=== PATIENT | female | born 1975 | race African-American/Black ===

== ENCOUNTER 2023-10-16 14:28 | Observation (INO) ==
[2023-10-16 14:55] LABS: Basophils # (auto) 0.04 K/uL (0.00-0.20); Basophils % (auto) 0.8 %; Eosinophils # (auto) 0.06 K/uL (0.00-0.50); Eosinophils % (auto) 1.2 %; Hematocrit (blood only) 36.8 % (37.0-47.0); Hemoglobin 11.9 g/dl (12.0-16.0); Immature Granulocytes # (auto) 0.01 K/uL (0.01-0.20); Immature Granulocytes % (auto) 0.2 %; Lymphocytes # (auto) 2.17 K/uL (1.20-3.40); Lymphocytes % (auto) 44.9 %; Mean Corpuscular Hemoglobin 24.8 pg (25.0-34.0); Mean Corpuscular Hgb Conc 32.3 g/dL (32.0-36.0); Mean Corpuscular Volume 76.7 fL (80.0-100.0); Mean Platelet Volume 8.7 fL (9.4-12.4); Monocytes # (auto) 0.38 K/uL (0.11-0.59); Monocytes % (auto) 7.9 %; Neutrophils # (auto) 2.17 K/uL (1.40-6.50); Platelet Count 302 K/uL (130-400); RDW Coefficient of Variation 14.6 % (11.5-14.5); RDW Standard Deviation 40.4 fL (36.4-46.3); White Blood Count 4.83 K/ul (4.8-10.8)
[2023-10-16 15:11] LABS: Alanine Aminotransferase 7 U/L (7-52); Albumin Globulin Ratio 0.9 (0.9-2); Albumin Level 3.9 gm/dl (3.4-5.0); Alkaline Phosphatase 66 U/L (34-104); Anion Gap 6 (3-11); Aspartate Aminotransferase 12 U/L (13-39); BUN Creatinine Ratio 15.5 (10-20); Bilirubin,Total 0.5 mg/dl (0.2-1.0); Blood Urea Nitrogen 13 mg/dl (6-23); Calcium 8.9 mg/dl (8.6-10.3); Carbon Dioxide 25 mmol/L (21-32); Chloride 107 mmol/L (98-107); Est GFR (African American) 95.9 ml/min; Est GFR (Non-African American) 82.8 ml/min; Globulin 4.4 gm/dl (2.5-4.0); Glucose 85 mg/dl (70-99(Fasting)); Lipase 6 U/L (11-82); Potassium 3.8 mmol/L (3.5-5.1); Sodium 138 mmol/L (136-145); Total Protein 8.3 gm/dl (6.0-8.3)
[2023-10-16 15:18] LABS: Pregnancy Test, Serum Negative (Negative)
[2023-10-16] MEDS: OPTIRAY 320 100ml IV ONE (15:43)
--- NOTE | 2023-10-16 16:20 | CT Scan Report ---
CT abd pelvis IV con only CLINICAL HISTORY: LLQ pain, kidney stone vs diverticultis TECHNIQUE: Helical axial images of the abdomen and pelvis were obtained and displayed. Automated dose lowering techniques and/or adjustment according to patient size were utilized for this exam. This e xam was performed with intravenous contrast. CT DOSE: 1338.53 mGy.cm COMPARISON: None available at the time of this dictation. FINDINGS: Lower chest: No acute abnormality. Liver: Unremarkable. No focal lesions are seen. Gallbladder and biliary tree: Patient is status post cholecystectomy. No intra- or extrahepatic bilia ry ductal dilation. Pancreas: Unremarkable, no focal lesions. Spleen: Unremarkable. Adrenals: Unremarkable. Kidneys and ureters: Unremarkable. Bladder: Unremarkable. Reproductive organs: 31 mm intramural fibroid is seen. Nabothian cysts are noted. Bowel: Diverticulosis is seen without diverticulitis. The appendix is normal. Lymph nodes Retroperitoneal: Unremarkable. Pelvic: Unremarkable. Mesenteric: Unremarkable. Peritoneum: Normal. Vessels: Unremarkable. Abdominal wall: Unremarkable. Bones: Unremarkable. IMPRESSION: No acute abnormality and in particular no evidence of diverticulitis or obstructive stone. Diverticul osis is seen. Additional findings as above. ACT 112: Negative or not required by law. Electronically signed by: Nura Young M.D. 10/16/2023 4:17 PM
--- NOTE | 2023-10-16 17:47 | Emergency Department Note ---
Impression & Plan Intractable abdominal pain ED Provider Note NAME: HERMAN DAVIS AGE: 47 SEX: F : 1975 ARRIVES VIA: Ambulance INFORMANT: Patient, ED PROVIDER(S): Opal Mccann MD CHIEF COMPLAINT: Left flank/abdominal pain HPI: This is a 47-year-old female sent for left abdominal/flank pain. Patient states he went to her PCP with his left lower abdominal/flank pain. They called 9 1 right away to bring your for evaluation. She notes that her pain started last night has associated nausea without vomiting. Reports no history of kidney stones in the past. Reports history of Crohn's, IBS and diverticulosis. Otherwise no urinary symptoms. Currently on her menstrual period. Otherwise her pain is stable if not worsening moving from flank to anterior abdomen. ROS: See above HPI for pertinent positives & negatives. A total of 10 systems reviewed and were otherwise negative. PHYSICAL EXAMINATION: General: resting comfortably in no acute distress Head: Normocephalic and atraumatic Eyes: Normal inspection, extraocular muscles intact Ear, nose, throat: Normal external exam Neck: Normal range of motion Respiratory: lungs clear to auscultation bilaterally Cardiovascular: Regular rate/rhythm, no murmur GI: Left CVA tenderness, left lower abdominal tenderness Extremities: nontender, moves all extremities Neuro: The patient awake and alert, appropriately conversive, no focal deficits, symmetric faces Skin: Warm, dry, and intact MEDICAL DECISION MAKING: This is a 47-year-old female presenting for left lower abdominal/flank pain. Patient was sent in for appears to be kidney stone rule out. Patient had triage workup that included blood work. CT scan of the abdomen/pelvis ordered with contrast help with today for other etiology additionally kidney stone including diverticulitis, SBO, gastroenteritis, volvulus. -Blood was reviewed without leukocytosis, anemia to 11.9. Otherwise electrolytes within normal limits. LFTs normal. No lipase elevation. Not currently . -CT Abdo/pelvis reveals no acute kidney stone or diverticulitis. With patient's lower abdominal pain, will do ultrasound of the pelvis to rule out ovarian torsion. -Ultrasound reveals no left ovary but otherwise notes of abnormalities have fibroid uterus. Discussed care with CARTOGRAPHY PROFESSOR. Low concern for ovarian torsion as there is no visualized ovary on ultrasound or CT. -Patient's symptoms are not significant improved despite pain medication. Will admit for intractable pain. Differential diagnosis: See above ER treatment provided: See below Diagnostics interpreted by me: ECG: None Cardiac Monitoring: An order was placed for continuous cardiac monitoring. The monitor shows a rate of 92 with sinus rhythm. Laboratory studies: As stated above and show below. Imaging studies: See below. Past Med/Surg History Problem List (Updated 10/17/23 @ 11:49 by Opal Mccann MD) Intractable abdominal pain (Acute) UTI (urinary tract infection) Abdominal pain Sleep paralysis Constipation Hematuria Flank pain Trochanteric bursitis, right hip Menorrhagia Uterine leiomyoma Obesity Osteoarthritis of patellofemoral joints, bilateral Urinary incontinence Back pain Knee pain IBS (irritable bowel syndrome) Sleep apnea Prediabetes Medical History Trochanteric bursitis, right hip Obesity Sleep apnea No pertinent past medical history No pertinent family history Surgical History History of tubal ligation Hx of cholecystectomy Family History Mother Heart disease Breast cancer Grandmother (Maternal) Cancer stomach Uterine cancer Social History Smoking Status: Never smoker Do You Dip or Chew Tobacco: No; Hx Alcohol Use: No Hx Substance Use: No Preferred Language: Welsh Communication Ability: Effective 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: No Beliefs That Will Affect Care: None marital status: Single Current Living Situation: Family current occupational status: employed 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 [employer] How many Children do You have: 4 Feels Safe at Home: Yes Gender Identity: Female Assistive Devices: None Allergies Allergies Allergy/AdvReac Type Severity Reaction Status Date / Time citric acid Allergy Intermediate Rash Unverified 10/17/23 08:06 shellfish derived Allergy Intermediate Rash Unverified 10/17/23 08:07 Penicillins Allergy Mild swelling Verified 10/17/23 08:06 Sulfa (Sulfonamide Allergy Verified 10/17/23 08:06 Antibiotics) Home Meds Previous Rx's Medication Instructions Recorded ciprofloxacin HCl 500 mg tablet 500 mg PO BID #6 tabs 10/17/23 polyethylene glycol 3350 17 gram 17 g PO DAILY #0 ea 10/17/23 oral powder packet (Miralax) Results & Data (ED) Vital Signs Vital Signs - 24 hr 10/16/23 14:31 10/16/23 18:07 10/16/23 19:59 Temperature 36.7 C Temperature Source Temporal Artery Scan Pulse Rate 82 67 Pulse Rate [Finger] 76 Pulse Rate from SpO2 Sensor Respiratory Rate 18 20 Respiratory Effort / Characteristics Non-Labored Spontaneous Non-Labored Spontaneous Respiratory Depth Normal Normal Respiratory Pattern Regular Blood Pressure 120/83 Blood Pressure [Left Arm] 124/83 Blood Pressure Mean 95 Blood Pressure Mean [Left Arm] 96 Blood Pressure Position Sitting Blood Pressure Position [Left Arm] Lying Pulse Oximetry 99 96 Oxygen Delivery Method Room Air Room Air Sepsis Recent Fever Within 48 Hours No Sepsis New/Unexplained Change in Mental Status No Sepsis Action Taken by Nursing No Action Required 10/16/23 20:00 10/16/23 20:33 10/16/23 21:18 Temperature Temperature Source Pulse Rate 61 63 74 Pulse Rate [Finger] Pulse Rate from SpO2 Sensor 60 61 Respiratory Rate 20 13 18 Respiratory Effort / Characteristics Respiratory Depth Respiratory Pattern Blood Pressure 134/84 148/102 H 121/100 Blood Pressure [Left Arm] Blood Pressure Mean 100 117 107 Blood Pressure Mean [Left Arm] Blood Pressure Position Blood Pressure Position [Left Arm] Pulse Oximetry 99 100 97 Oxygen Delivery Method Room Air Room Air Room Air Sepsis Recent Fever Within 48 Hours Sepsis New/Unexplained Change in Mental Status Sepsis Action Taken by Nursing 10/16/23 21:30 10/16/23 21:42 Temperature Temperature Source Pulse Rate 66 61 Pulse Rate [Finger] Pulse Rate from SpO2 Sensor 64 62 Respiratory Rate 18 13 Respiratory Effort / Characteristics Respiratory Depth Respiratory Pattern Blood Pressure 158/137 H 153/109 H Blood Pressure [Left Arm] Blood Pressure Mean 144 123 Blood Pressure Mean [Left Arm] Blood Pressure Position Blood Pressure Position [Left Arm] Pulse Oximetry 100 98 Oxygen Delivery Method Room Air Room Air Sepsis Recent Fever Within 48 Hours Sepsis New/Unexplained Change in Mental Status Sepsis Action Taken by Nursing Laboratory Data 10/17/23 03:59 10/17/23 03:59 Lab Results 10/16/23 10/16/23 Range/Units 14:34 21:12 WBC 4.83 (4.8-10.8) K/ul RBC 4.80 (4.20-5.40) M/uL Hgb 11.9 L (12.0-16.0) g/dl Hct 36.8 L (37.0-47.0) % MCV 76.7 L (80.0-100.0) fL MCH 24.8 L (25.0-34.0) pg MCHC 32.3 (32.0-36.0) g/dL RDW Std Deviation 40.4 (36.4-46.3) fL RDW Coeff of Venkatesh 14.6 H (11.5-14.5) % Plt Count 302 (130-400) K/uL MPV 8.7 L (9.4-12.4) fL Immature Gran % (Auto) 0.2 % Neut % (Auto) 45.0 % Lymph % (Auto) 44.9 % [place] % (Auto) 7.9 % Eos % (Auto) 1.2 % Baso % (Auto) 0.8 % Neut # (Auto) 2.17 (1.40-6.50) K/uL Lymph # (Auto) 2.17 (1.20-3.40) K/uL [place] # (Auto) 0.38 (0.11-0.59) K/uL Eos # (Auto) 0.06 (0.00-0.50) K/uL Baso # (Auto) 0.04 (0.00-0.20) K/uL Immature Gran # (Auto) 0.01 (0.01-0.20) K/uL Sodium 138 (136-145) mmol/L Potassium 3.8 (3.5-5.1) mmol/L Chloride 107 (98-107) mmol/L Carbon Dioxide 25 (21-32) mmol/L Anion Gap 6 (3-11) BUN 13 (6-23) mg/dl Creatinine 0.84 (0.6-1.2) mg/dl Est Cr Clr Drug Dosing Not Reportable Est GFR ( Amer) 95.9 ml/min Est GFR (Non-Af Amer) 82.8 ml/min BUN/Creatinine Ratio 15.5 (10-20) Glucose 85 (70-99(Fasting)) mg/dl Calcium 8.9 (8.6-10.3) mg/dl Total Bilirubin 0.5 (0.2-1.0) mg/dl AST 12 L (13-39) U/L ALT 7 (7-52) U/L Alkaline Phosphatase 66 (34-104) U/L Total Protein 8.3 (6.0-8.3) gm/dl Albumin 3.9 (3.4-5.0) gm/dl Globulin 4.4 H (2.5-4.0) gm/dl Albumin/Globulin Ratio 0.9 (0.9-2) Lipase 6 L (11-82) U/L HCG, Qual Negative (Negative) Urine Color Yellow Urine Appearance Clear (Clear) Urine pH 5.5 (4.5-7.5) Ur Specific [place] > 1.045 H (1.000-1.030) Urine Protein 1+ H (Negative) Urine Glucose (UA) Negative (Negative) Urine Ketones Trace H (Negative) Urine Blood 3+ H (Negative) Urine Nitrite Negative (Negative) Urine Bilirubin Negative (Negative) Urine Urobilinogen Negative (Negative) Ur Leukocyte Esterase Negative (Negative) Urine WBC (Auto) 0-5 (0-5) /hpf Urine RBC (Auto) 11-20 H (0-2) /hpf U Hyaline Cast (Auto) 0-2 (0-2) /lpf U Epithel Cells (Auto) 6-10 H (0-2) /hpf Urine Bacteria (Auto) 1+ H (None Seen) Administered Medications Discontinued Medications Acetaminophen (Acetaminophen 500 Mg Tab) 1,000 mg PO Q8H [facility] Stop: 11/16/23 01:59 Last Admin: 10/17/23 02:14 Dose: Not Given Documented By: SANDOR Ciprofloxacin (Ciprofloxacin 500 Mg Tab) 500 mg PO BID [facility]; Protocol Stop: 10/22/23 08:59 Last Admin: 10/17/23 08:56 Dose: 500 mg Documented By: GIA Hydromorphone HCl (Hydromorphone Inj 0.5 Mg/0.5 Ml Syr) 0.5 mg IV NOW STA Stop: 10/16/23 21:56 Last Admin: 10/16/23 22:28 Dose: Not Given Documented By: CHUYITA Acetaminophen (Ofirmev) 1,000 mg in 100 mls @ 400 mls/hr IV NOW STA Stop: 10/16/23 20:13 Last Admin: 10/16/23 20:19 Dose: Not Given Documented By: CHUYITA Sodium Chloride (Nss) 1,000 mls @ 999 mls/hr IV .Q1H1M ONE Stop: 10/16/23 23:55 Last Infusion: 10/17/23 01:27 Dose: Infused Documented By: Admin: 10/16/23 23:27 Dose: 999 mls/hr Documented By: CHUYITA Lactated Ringer's (Lr) 1,000 mls @ 150 mls/hr IV .Q6H40M RAMESH Stop: 10/17/23 13:04 Last Infusion: 10/17/23 09:59 Dose: Infused Documented By: Admin: 10/17/23 08:55 Dose: 150 mls/hr Documented By: Infusion: 10/17/23 08:37 Dose: Infused Documented By: Admin: 10/17/23 01:56 Dose: 150 mls/hr Documented By: SANDOR Ioversol (Optiray 320 100ml) 94 ml IV ONCE ONE Stop: 10/16/23 15:43 Last Admin: 10/16/23 15:43 Dose: 94 ml Documented By: SHARDA Ketorolac Tromethamine (Ketorolac Tromethamine 15 Mg/Ml Vial) 15 mg IV NOW ONE Stop: 10/16/23 17:48 Last Admin: 10/16/23 18:09 Dose: 15 mg Documented By: ELIEL Ketorolac Tromethamine (Ketorolac Tromethamine 15 Mg/Ml Vial) 15 mg IV NOW ONE Stop: 10/16/23 20:55 Last Admin: 10/16/23 21:18 Dose: 15 mg Documented By: CHUYITA Ketorolac Tromethamine (Ketorolac Tromethamine 15 Mg/Ml Vial) 15 mg IV Q6H PRN PRN Reason: Pain Stop: 10/22/23 01:02 Last Admin: 10/17/23 04:21 Dose: 15 mg Documented By: SANDOR Ondansetron HCl (Ondansetron Inj 2 Mg/Ml 2 Ml Vial) 4 mg IV NOW STA Stop: 10/16/23 17:48 Last Admin: 10/16/23 18:09 Dose: 4 mg Documented By: ELIEL Polyethylene Glycol (Polyethylene (Miralax) 17 Gm Pack) 34 gm PO ONE ONE Stop: 10/16/23 23:10 Last Admin: 10/16/23 23:26 Dose: 34 gm Documented By: CHUYITA Polyethylene Glycol (Polyethylene (Miralax) 17 Gm Pack) 17 gm PO DAILY [facility] Stop: 11/16/23 08:59 Last Admin: 10/17/23 08:56 Dose: 17 gm Documented By: GIA Tamsulosin HCl (Tamsulosin Hcl 0.4 Mg Cap) 0.4 mg PO NOW ONE Stop: 10/16/23 23:46 Last Admin: 10/17/23 00:21 Dose: 0.4 mg Documented By: CHUYITA Tamsulosin HCl (Tamsulosin Hcl 0.4 Mg Cap) 0.4 mg PO QAM [facility] Stop: 11/16/23 08:59 Last Admin: 10/17/23 08:56 Dose: 0.4 mg Documented By: GIA Imaging Data Radiologist's Impression: Pelvis Ultrasound 10/16/23 17:43 Exam(s): US PELVIS EXAM: US Pelvis Transabdominal and Transvaginal, Complete CLINICAL HISTORY: Reason for exam: Ovarian torsion. TECHNIQUE: Real-time complete transabdominal and transvaginal pelvic ultrasound with image documentation. Transvaginal imaging was used for better evaluation of the endometrium and adnexa. COMPARISON: No relevant prior studies available. FINDINGS: Uterus/cervix: Uterus measures 9.2 x 4.8 x 5.6 cm. Endometrium measures 5 mm. Cervical nabothian cysts. At least 2 intramural fibroids identified, largest anterior/fundal in location measuring 2.5 cm. Right ovary: Right ovary measures 20 x 12 x 15 mm and demonstrates blood flow. Left ovary: Left ovary not visualized, obscured by bowel gas. Free fluid: No free fluid. Bladder: Unremarkable as visualized. Wall is normal thickness for degree of distention. IMPRESSION: 1. No right ovarian torsion. 2. Left ovary not visualized. 3. Fibroid uterus. Electronically signed by: Berenice Crews M.D. 10/16/23 21:37 PM Discharge Plan Visit Data Chief Complaint: Abdominal Pain Stated Complaint: AB PAIN ED Provider: Opal Mccann Discharge Problem: Intractable abdominal pain Patient Disposition: Home - Self-Care Discharge Instructions Interventions: ED Discharge Assessment Last Done: 10/17/23 01:03
[2023-10-16] MEDS: KETOROLAC TROMETHAMINE 15 MG/ML VIAL IV ONE ×2 (18:09→21:18)
[2023-10-16] MEDS: ONDANSETRON INJ 2 MG/ML 2 ML VIAL IV STA (18:09)
[2023-10-16] MEDS: ACETAMINOPHEN 1,000 MG/100 ML VIAL IV STA (20:19)
--- NOTE | 2023-10-16 21:37 | History & Physical Report ---
Date of Service October 16, 2023 Assessment & Plan (1) Flank pain: Plan: Patient with clinical picture highly suspicious for kidney stone - significant amount of blood in her urine, CVA tenderness. Per my read there are multiple radio-opaque densities on CT in the general distribution of the urinary tract. Not mentioned in report - would consider radiology over-read. If over-read concerning for obstruction would consult urology. Small amounts of bacterial present in urine - culture sent. Patient without clinical signs of pyelonephritis. More likely nephrolithiasis. Start flomax, IVF Pain control with scheduled Tylenol and PRN Toradol. Zofran for antiemetics. (2) Constipation: Plan: Significant stool burden seen per my read of CT. Patient does report being constipated. MiraLax 34 g x1, then 17 daily. Hydration will likely help as well - 1 L NSS bolus, mIVF LR @ 150 mL/hr x 2 bags. Miralax 17 daily, 34 x 1 (3) Sleep paralysis: Plan: Witnessed episode of likely sleep paralysis and subsequent anxious state. Patient has a history of such. Slightly different from typical. Patient declined anxiolytics. Continue to monitor. (4) Hematuria: (5) Uterine leiomyoma: Plan: Chronic conditions stable Plan Code status: full DVT ppx: low risk, ambulation, SCDs FENGI: regular, IVF NSS 1L bolus x1, LR @ 150 x2 bags Dispo: tele unit History of Present Illness Chief Complaint: pain Primary Care Provider: Edwige Lopez DO 47 y/o female here for left sided lower quadrant pain and flank pain. Symptoms started 6/12 and worsened overnight. LLQ and left flank pain with associated nausea. No vomiting. Patient seen by PCP today. UA positive for blood. Concern for kidney stone. Patient brought in by EMS for further evaluation. CT with diverticulosis, no diverticulitis. Patient received toradol 15 mg IV x2 with improvement in symptoms. Hospitalist team called for admission for further work up and pain control. Upon my evaluation patient appears to be in some sort of sleep paralysis state. Did wake and reorient with sternal rub. Patient did not receive any narcotic medications. Patient acutely anxious following this event. Did calm down while I was in the room. She appeared to be acutely in back pain with grimacing. She denies any fevers, chills, headaches, CP, SOB, urinary symptoms. Last BM yesterday - hard. Did return to talk with patient and she was calm and completely oriented. No pain at second interview. 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 Episodes typically infrequent. Allergies Allergy/AdvReac Type Severity Reaction Status Date / Time citric acid Allergy Intermediate Rash Unverified 10/17/23 08:06 shellfish derived Allergy Intermediate Rash Unverified 10/17/23 08:07 Penicillins Allergy Mild swelling Verified 10/17/23 08:06 Sulfa (Sulfonamide Allergy Verified 10/17/23 08:06 Antibiotics) Home Medications Medication Instructions Recorded Confirmed Type ciprofloxacin HCl 500 mg tablet 500 mg PO BID #6 tabs 10/17/23 Rx polyethylene glycol 3350 17 gram 17 g PO DAILY #0 ea 10/17/23 Rx oral powder packet (Miralax) Past Med/Surg History Problem List (Updated 10/17/23 @ 11:49 by Opal Mccann MD) Intractable abdominal pain (Acute) UTI (urinary tract infection) Abdominal pain Sleep paralysis Constipation Hematuria Flank pain Trochanteric bursitis, right hip Menorrhagia Uterine leiomyoma Obesity Osteoarthritis of patellofemoral joints, bilateral Urinary incontinence Back pain Knee pain IBS (irritable bowel syndrome) Sleep apnea Prediabetes Medical History Trochanteric bursitis, right hip Obesity Sleep apnea No pertinent past medical history No pertinent family history Surgical History History of tubal ligation Hx of cholecystectomy Family History Mother Heart disease Breast cancer Grandmother (Maternal) Cancer stomach Uterine cancer Social History Smoking Status: Never smoker Do You Dip or Chew Tobacco: No; Hx Alcohol Use: No Hx Substance Use: No Preferred Language: Macanese Communication Ability: Effective 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 Upon reassessment patient alert and oriented, following commands, appropriate mood and affect, no distress HEENT: AT NC MMM Resp: CTAB no wheezing no increased work of breathing CV: RRR no m/r/g 2+ peripheral pulses, no edema clinically well perfused Abd: soft, non-distended, hypoactive BS, TTP LLQ, CVA tenderness bilaterally left worse than right, no peritoneal signs MSK: no obvious deformities Skin: no rashes or bruising Neuro: alert and oriented Psych: appropriate mood and affect Results & Data Results & Data Vital Signs (Past 12 Hours) Vital Signs Temp Pulse Pulse Resp BP BP Pulse Ox 10/16/23 20:33 63 13 148/102 H 100 10/16/23 20:00 61 20 134/84 99 10/16/23 19:59 67 10/16/23 18:07 76 20 124/83 96 10/16/23 14:31 36.7 C 82 18 120/83 99 O2 Del Method 10/16/23 20:33 Room Air 10/16/23 20:00 Room Air 10/16/23 19:59 10/16/23 18:07 Room Air 10/16/23 14:31 Room Air Laboratory Results 10/16/23 14:34 10/16/23 14:34 Diagnostic Findings Abdomen/Pelvis CT 10/16/23 15:21 FINDINGS: Lower chest: No acute abnormality. Liver: Unremarkable. No focal lesions are seen. Gallbladder and biliary tree: Patient is status post cholecystectomy. No intra- or extrahepatic biliary ductal dilation. Pancreas: Unremarkable, no focal lesions. Spleen: Unremarkable. Adrenals: Unremarkable. Kidneys and ureters: Unremarkable. Bladder: Unremarkable. Reproductive organs: 31 mm intramural fibroid is seen. Nabothian cysts are noted. Bowel: Diverticulosis is seen without diverticulitis. The appendix is normal. Lymph nodes Retroperitoneal: Unremarkable. Pelvic: Unremarkable. Mesenteric: Unremarkable. Peritoneum: Normal. Vessels: Unremarkable. Abdominal wall: Unremarkable. Bones: Unremarkable. IMPRESSION: No acute abnormality and in particular no evidence of diverticulitis or obstructive stone. Diverticulosis is seen. Additional findings as above. Pelvis Ultrasound 10/16/23 17:43 FINDINGS: Uterus/cervix: Uterus measures 9.2 x 4.8 x 5.6 cm. Endometrium measures 5 mm. Cervical nabothian cysts. At least 2 intramural fibroids identified, largest anterior/fundal in location measuring 2.5 cm. Right ovary: Right ovary measures 20 x 12 x 15 mm and demonstrates blood flow. Left ovary: Left ovary not visualized, obscured by bowel gas. Free fluid: No free fluid. Bladder: Unremarkable as visualized. Wall is normal thickness for degree of distention. IMPRESSION: 1. No right ovarian torsion. 2. Left ovary not visualized. 3. Fibroid uterus. Supervising Physician Co-Signing Physician Notes Attending addendum: I have physically seen this patient, have supervised the medical residents activities, and agree with the H&P unless as otherwise noted. Assessment and Plan: Abdominal pain/constipation- Rehydrated with IV fluids as noted, Bowel regimen with MiraLAX as noted Phleboliths noted on CT Sleep paralysis- Patient did have a witnessed episode this evening in the ED Hematuria- Follow urine culture and sensitivity CT scan abdomen and pelvis without kidney stones Urine is hyper concentrated with elevated urine specific gravity Patient encouraged to increase fluid intake Resident Activity Tracking Resident Involvement: Resident Care Provided Care Provided: Adult [facility] Medicine
--- NOTE | 2023-10-16 21:38 | Ultrasound Report ---
Exam(s): US PELVIS EXAM: US Pelvis Transabdominal and Transvaginal, Complete CLINICAL HISTORY: Reason for exam: Ovarian torsion. TECHNIQUE: Real-time complete transabdominal and transvaginal pelvic ultrasound with image documentation. Transvaginal imaging was used for better evaluation of the endometrium and adnexa. COMPARISON: No relevant prior studies available. FINDINGS: Uterus/cervix: Uterus measures 9.2 x 4.8 x 5.6 cm. Endometrium measures 5 mm. Cervical nabothian cysts. At least 2 intramural fibroids identified, largest anterior/fundal in location measuring 2.5 cm. Right ovary: Right ovary measures 20 x 12 x 15 mm and demonstrates blood flow. Left ovary: Left ovary not visualized, obscured by bowel gas. Free fluid: No free fluid. Bladder: Unremarkable as visualized. Wall is normal thickness for degree of distention. IMPRESSION: 1. No right ovarian torsion. 2. Left ovary not visualized. 3. Fibroid uterus. Electronically signed by: Berenice Crews M.D. 10/16/23 21:37 PM
[2023-10-16 21:50] LABS: Appearance Urine Clear (Clear); Bilirubin Urine Negative (Negative); Blood Urine 3+ (Negative); Cast Urine Automated 0-2 /lpf (0-2); Color Urine Yellow; Glucose Urine UA Negative (Negative); Ketones Urine Trace (Negative); Leukocyte Esterase Urine Negative (Negative); Nitrite Urine Negative (Negative); Protein Urine 1+ (Negative); Specific Gravity Urine > 1.045 (1.000-1.030); Urobilinogen Urine Negative (Negative); WBC Urine Automated 0-5 /hpf (0-5); pH Urine 5.5 (4.5-7.5)
[2023-10-16 22:20] LABS: Bacteria Urine Automated 1+ (None Seen)
[2023-10-16] MEDS: HYDROmorphone INJ 0.5 MG/0.5 ML SYR IV STA (22:28)
[2023-10-16] MEDS: POLYETHYLENE (MIRALAX) 17 GM PACK PO ONE (23:26)
[2023-10-16] MEDS: SODIUM CHLORIDE 0.9% 1,000 ML IV ONE (23:27)
[2023-10-17] MEDS: TAMSULOSIN HCL 0.4 MG CAP PO ONE (00:21)
[2023-10-17] MEDS ORDERED: MAGNESIUM HYDROXIDE SUSP 30 ML UDC PO PRN (01:03)
[2023-10-17] MEDS ORDERED: ALUMINUM/MAGNESIUM SUSP 30 ML UDC PO PRN (01:03)
[2023-10-17] MEDS: LACTATED RINGER'S 1,000 ML IV SCH (01:56)
[2023-10-17] MEDS: ACETAMINOPHEN 500 MG TAB PO SCH (02:14)
[2023-10-17] MEDS ORDERED: ONDANSETRON 4 MG OD TAB PO PRN (02:29)
[2023-10-17] MEDS: KETOROLAC TROMETHAMINE 15 MG/ML VIAL IV PRN (04:21)
[2023-10-17 04:30] LABS: Hematocrit (blood only) 30.6 % (37.0-47.0); Hemoglobin 9.8 g/dl (12.0-16.0); Mean Corpuscular Hemoglobin 24.6 pg (25.0-34.0); Mean Corpuscular Volume 76.9 fL (80.0-100.0); Mean Platelet Volume 8.8 fL (9.4-12.4); Platelet Count 242 K/uL (130-400); RDW Coefficient of Variation 14.6 % (11.5-14.5); RDW Standard Deviation 40.9 fL (36.4-46.3); Red Blood Count 3.98 M/uL (4.20-5.40)
[2023-10-17 04:45] LABS: BUN Creatinine Ratio 20.8 (10-20); Calcium 7.8 mg/dl (8.6-10.3); Creatinine Clr Calc Pharmacy 123.9 ml/min; Est GFR (African American) 115.6 ml/min; Est GFR (Non-African American) 99.7 ml/min; Potassium 3.6 mmol/L (3.5-5.1)
[2023-10-17] MEDS: TAMSULOSIN HCL 0.4 MG CAP PO SCH (08:56)
[2023-10-17] MEDS: CIPROFLOXACIN 500 MG TAB PO SCH (08:56)
[2023-10-17] MEDS: POLYETHYLENE (MIRALAX) 17 GM PACK PO SCH (08:56)
[2023-10-17 09:19] LABS: Ferritin 8.3 ng/ml (8-388)
--- NOTE | 2023-10-17 10:27 | Discharge Summary ---
Date of Service October 17, 2023 Admission HPI Per Admitting Provider 47 y/o female here for left sided lower quadrant pain and flank pain. Symptoms started / and worsened overnight. LLQ and left flank pain with associated nausea. No vomiting. Patient seen by PCP today. UA positive for blood. Concern for kidney stone. Patient brought in by EMS for further evaluation. CT with diverticulosis, no diverticulitis. Patient received toradol 15 mg IV x2 with improvement in symptoms. Hospitalist team called for admission for further work up and pain control. Upon my evaluation patient appears to be in some sort of sleep paralysis state. Did wake and reorient with sternal rub. Patient did not receive any narcotic medications. Patient acutely anxious following this event. Did calm down while I was in the room. She appeared to be acutely in back pain with grimacing. She denies any fevers, chills, headaches, CP, SOB, urinary symptoms. Last BM yesterday - hard. Did return to talk with patient and she was calm and completely oriented. No pain at second interview. 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 Episodes typically infrequent. Principal Diagnosis Abdominal pain probably from constipation, possible UTI Discharge Exam General-alert and oriented x3, no fever, no chills HEENT-head atraumatic and normocephalic, pupils equal and reactive to light, extraocular muscles intact Neck-no lymphadenopathy or thyromegaly, trachea midline Chest-clear to auscultation. No rales, wheezing or rhonchi Cardiac-regular rate and rhythm, normal S1 and S2 Abdomen-normal bowel sounds, no hepatosplenomegaly Extremities-no cyanosis, clubbing, or edema Neuro-cranial nerves II through XII intact, motor and sensory function within normal limits, strength symmetrical, no focal deficits Psych-normal affect, normal mood Discharge Data Allergies Allergy/AdvReac Type Severity Reaction Status Date / Time citric acid Allergy Intermediate Rash Unverified 10/17/23 08:06 shellfish derived Allergy Intermediate Rash Unverified 10/17/23 08:07 Penicillins Allergy Mild swelling Verified 10/17/23 08:06 Sulfa (Sulfonamide Allergy Verified 10/17/23 08:06 Antibiotics) Consultations 10/16/23 21:55 ED Decision to Admit Stat Ordered Studies 10/16/23 15:21 CT abd pelvis IV con only Stat 10/16/23 17:43 US Pelvis [US pelvic complete] Stat US transvaginal Stat Hospital Course (1) Abdominal pain: Appears to be due to constipation. She was told by the resident that she had a ureteral calculus but the CT scan was read by Dr. Nick Tilley EI and it reveals no evidence of ureteral calculus. I spoke to him personally by phone and he said she does have bilateral phleboliths that may be misconstrued as ureteral stones. I suspect her abdominal pain is due to the underlying constipation which is being treated (2) UTI (urinary tract infection): Possible. Urine reveals 1+ bacteria. Culture results are pending. She is now on Cipro. (3) Constipation: She has been given MiraLAX and this will continue at home as needed Plan Home today, October 14, on Cipro oral antibiotic. Follow-up with PCP to review final urine culture results. She is allergic to penicillin and sulfa Total Time Total Time Spent Total Time Spent (In Minutes): 45 minutes Discharge Plan Discharge Items Patient Disposition: Home - Self-Care Reason For Visit: PAIN CONTROL Discharge Diagnosis: Abdominal pain due to constipation, possible UTI Activity: Resume your previous activity Non-emergency contact: Primary Care Provider Call non-emergency contact if: your symptoms worsen Follow-up/Referrals: Edwige Powers DO [Primary Care Provider] - Diet: Regular Addtl Attending Provider Instructions: Take Cipro twice daily for 3 days. Take MiraLAX daily for constipation. See primary care provider soon as possible to review final urine culture results Pending Studies at Discharge: Yes Studies:: Final urine culture results Stand-Alone Forms: My [facility] [employer], Smoking Cessation Medications and DC Order Prescriptions: New ciprofloxacin HCl 500 mg Tablet 500 mg PO BID Qty: 6 0RF polyethylene glycol 3350 [Miralax] 17 gram Powder In Packet 17 g PO DAILY Qty: 0 0RF Discharge Orders: Discharge Order (Routine); Ordered 10/17/23 Ordered By: Kenneth Cobb Admission Data Admit Date/Time: 10/16/23 23:08 Attending Provider: Kenneth Cobb Admit Provider: Tamela Gillespie Primary Care Provider: Edwige Powers Other Providers: Jose De Jesus Ji Coding Level of Care Code 84356 INP/OBS DISCH >30 MIN Diagnoses Abdominal pain R10.9 UTI (urinary tract infection) N39.0 Constipation K59.00
--- NOTE | 2023-10-17 13:11 | Electrocardiogram Report ---
Test Reason : Blood Pressure : / mmHG Vent. Rate : 063 BPM Atrial Rate : 063 BPM P-R Int : 182 ms QRS Dur : 082 ms QT Int : 456 ms P-R-T Axes : 066 033 027 degrees QTc Int : 466 ms Normal sinus rhythm Nonspecific T wave abnormality Abnormal ECG When compared with ECG of 15-FEB-2022 17:40, No significant change was found Confirmed by Paulo Chan ([id number]) on 10/17/2023 1:11:07 PM Referred By: Edwige Lopez Confirmed By:Rafat Chan
--- OUTSIDE RECORDS SUMMARY | 2023-10-18 00:46 | External Medical Summary | Continuity of Care Document ---
Author Name Unknown Organization [facility] [address] [facility] [address] [phone] Care Team Providers Care Armed Custom Protection Officer Name Role Phone Edwige Powers [facility] [phone] [id number] Date(s): 08/21/23 - 08/21/23 [facility] [address] [phone] Encounter Diagnosis Eczema, dyshidrotic(Discharge Diagnosis) - 08/21/23 Nummular dermatitis(Discharge Diagnosis) - 08/21/23 Seborrheic dermatitis(Discharge Diagnosis) - 08/21/23 Discharge Disposition: Home or Self Care Attending Physician: MD Leavitt Thomas A Referring Physician: Alla Lopez DO, Mariana Annette Allergies, Adverse Reactions, Alerts Substance Reaction Severity Status citric acid throat swelling Active sulfa drugs rash Active PCN (penicillin) facial swelling Active Assessment and Plan Extracted from: Title:Clinical Document Author:MD Dagmar, Betty walker [facility]ell[facility] Date:08/21/23 OUTPATIENT NOTE Name: HERMAN PALUMBO Patient Number:1 [id number] : 1975 Date of Service: 08/21/2023 Joy Palumbo presents with several cutaneous problems. She has a lifelong history of eczematous dermatitis manifesting itself as nummular lesions on the legs and lesions in the scalp and on the feet as dyshidrosis. She has found betamethasone valerate ointment to be most effective on eczematous lesions on the body and scalp and Kasilof-Smoothe branded scalp oil to be most effective for conditions on the scalp. She has not found the generic product to work well. She notes intermittent outbreaks of dyshidrosis present on the plantar aspect of the feet. We discussed options for treatment of the dyshidrosis including tannic acid soaks followed by application of the betamethasone valerate for which she was given a prescription for the vesicular stage of the dyshidrosis and for the dry face to use a combination of AmLactin lotion and overlaid this with Vaseline petroleum jelly, Aquaphor. For the scalp, the patient may continue with use of Kasilof-Smoothe and we gave her another prescription for this today. Past medical family social history review of systems medications allergies as noted on the chart. The patient is in stable health currently. She has a prior history of alopecia areata which is since resolved. Examination reveals pleasant well-nourished black female type IV skin alert and oriented x 3 with no mood and affect. Examination of the head, neck, arms legs, feet reveals peeling on the feet, without onychomycotic change, asteatotic change on the legs, scalp and extremities show no evidence of dermatitis today. Impression patient with history of eczematous dermatitis, dyshidrosis, mild seborrheic dermatitis of the scalp with prior history of alopecia areata. She is currently under relatively good control. She was given additional prescriptions today. She will return as needed for reevaluation. Medications betamethasone valerate 0.1% topical ointment Start: 08/21/23 13:54:00 EDT, See Instructions, Disp# 45 g, Refills: 3, apply to dermatitis on the trunk and extremities, Pharmacy: [id number] Start Date: 08/21/23 Status: Ordered cyclobenzaprine 10 mg oral tablet Start: 05/06/23 16:21:00 EST, 1 tab, PO, bid, Disp# 42 tab, PRN: as needed for spasm, Pharmacy: [id number] Start Date: 05/06/23 Stop Date: 05/27/23 Status: Ordered Kasilof-Smoothe/FS (Scalp) 0.01% topical oil Start: 08/21/23 13:54:00 EDT, See Instructions, Disp# 118 mL, Refills: 5, apply to damp scalp at bedtime and cover with shower cap, Brand Medically Necessary, Pharmacy: [id number] Start Date: 08/21/23 Status: Ordered doxycycline hyclate 100 mg oral capsule Start: 07/11/23 14:22:00 EST, 1 cap, PO, bid, Disp# 20 cap, Pharmacy: [facility] #[id number] Start Date: 07/11/23 Stop Date: 07/21/23 Status: Ordered Medrol Dosepak 4 mg oral tablet Start: 07/11/23 14:24:00 EST, See Instructions, Disp# 21 tab, Take as directed on package labeling for 6 days., Pharmacy: [facility]/pharmacy #[id number] Start Date: 07/11/23 Stop Date: 07/17/23 Status: Ordered Mental Status 08/21/23 Barriers to Learning one year None evide nt Mandatory Health Literacy Documentation Yes Health Literacy Communication Barriers N ever Primary Language Turkmen Problem List Condition Confirmation Course Effective Dates Status H ealth Status Informant Anemia Confirmed Active Asthma Confirmed Active Diverticulosis Confirmed Active Eczema Confirmed Active IBS (irritable bowel syndrome) Confirmed Active RADHA (obstructive sleep apnea) Confirmed Active OA (osteoarthritis) of knee Confirmed Active Prediabetes Confirmed Active Diagnosis Diagnosis Type Effective Dates Health Status Clinical Service Informant Nummular dermatitis Discharge Diagnosis 08/21/23 Non-Specified Seborrheic dermatitis Discharge Diagnosis 08/21/23 Non-Specified Eczema, dyshidrotic Discharge Diagnosis 08/21/23 Non-Specified Social History Social History Type Response Smoking Status Never smoked cigaret brook Sex Female Outpatient Note * MD Dagmar, Baldemar Castellanos: PERFORM Event Display: .Outpt Note Authored Date: [id number] OUTPATIENT NOTE Name: HERMAN PALUMBO Patient Number:1 [id number] : 1975 Date of Service: 08/21/2023 Joy Palumbo presents with several cutaneous problems. She has a lifelong history of eczematous dermatitis manifesting itself as nummular lesions on the legs and lesions in the scalp and on the feet as dyshidrosis. She has found betamethasone valerate ointment to be most effective on eczematous lesions on the body and scalp and Kasilof-Smoothe branded scalp oil to be most effective for conditions on the scalp. She has not found the generic product to work well. She notes intermittent outbreaks of dyshidrosis present on the plantar aspect of the feet. We discussed options for treatment of the dyshidrosis including tannic acid soaks followed by application ofthe betamethasone valerate for which she was given a prescription for the vesicular stage of the dyshidrosis and for the dry face to use a combination of AmLactin lotion and overlaid this with Vaseline petroleum jelly, Aquaphor. For the scalp, the patient may continue with use of Kasilof-Smoothe and we gave her another prescription for this today. Past medical family social history review of systems medications allergies as noted on the chart. The patient is in stable health currently. She has a prior history of alopecia areata which is since resolved. Examination reveals pleasant well-nourished black female type IV skin alert and oriented x 3 with no mood and affect. Examination of the head, neck, arms legs, feet reveals peeling on the feet, without onychomycotic change, asteatotic change on the legs, scalp and extremities show no evidence of dermatitis today. Impression patient with history of eczematous dermatitis, dyshidrosis, mild seborrheic dermatitis of the scalp with prior history of alopecia areata. She is currently under relatively good control. She was given additional prescriptions today. She will return as needed for reevaluation. Electronic Signature on File CC: Edwige Lopez DO [address] [place] [address] Electronically Reviewed/Signed by: Baldemar Leavitt MD Author Signature Dt/Tm:08/21/2023 02:12 PM Department of Dermatology [facility] Patient Care team information Care Team Personnel Name: Alla Lopez DO, Mariana Annette Position: Physician - Family Med Member Role: Primary Care Provider Address: Address: [address] [place] [address] [place] Care Team Related Persons Name: ESTRELLITA PALUMBO Address: home [address], [place] [phone] Name: RONAL PALUMBO Address: home [address], [place] [phone]
--- OUTSIDE RECORDS SUMMARY | 2023-10-18 00:46 | External Medical Summary | Continuity of Care Document ---
Author Name Unknown Organization [facility] [address] [place] [address] [address] [facility] [place], [place] [phone] Care Team Providers Care Interior Paneler Name Role Phone Edwige Powers Primary Care beulah [phone] Encounter [facility] [id number] Date(s): 07/11/23 - 07/11/[address] [facility] [address] [facility], [address] [place] [address] [phone] Encounter Diagnosis Establishing care with new doctor, encounter for(Discharge Diagnosis) - 07/11/23 Respiratory infection(Discharge Diagnosis) - 07/11/23 Eczema(Discharge Diagnosis) - 07/11/23 Discharge Disposition: Home or Self Care Attending Physician: Alla Lopez DO, Mariana Annette Referring Physician: Alla Lopez DO, Mariana Annette Allergies, Adverse Reactions, Alerts Substance Reaction Severity Status citric acid throat swelling Active sulfa drugs rash Active PCN (penicillin) facial swelling Active Assessment and Plan Extracted from: Title:Office Visit Note Author:Alla Lopez DO, Mariana Annette Date:07/11/23 1.Establishing care with n doctor, encounter for will obtain records ordered screening labs will bring patient back to update health maintenance 2.Respiratory infection Acute, worsening will treat with doxycycline 100mg bid 10 days and medrol dose pack 3.Eczema referral to dermatology per patient request Medications cyclobenzaprine 10 mg oral tablet Start: 05/06/23 16:21:00 EST, 1 tab, PO, bid, Disp# 42 tab, PRN: as needed for spasm, Pharmacy: [id number] Start Date: 05/06/23 Stop Date: 05/27/23 Status: Ordered doxycycline hyclate 100 mg oral capsule Start: 07/11/23 14:22:00 EST, 1 cap, PO, bid, Disp# 20 cap, Pharmacy: [facility][id number] Start Date: 07/11/23 Stop Date: 07/21/23 Status: Ordered Medrol Dosepak 4 mg oral tablet Start: 07/11/23 14:24:00 EST, See Instructions, Disp# 21 tab, Take as directed on package labeling for 6 days., Pharmacy: [id number] Start Date: 07/11/23 Stop Date: 07/17/23 Status: Ordered Mental Status 07/11/23 Barriers to Learning one year None evide nt Mandatory Health Literacy Documentation Yes Health Literacy Communication Barriers N ever Primary Language French Problem List Condition Confirmation Course Effective Dates Status H ealth Status Informant Anemia Confirmed Active Asthma Confirmed Active Diverticulosis Confirmed Active Eczema Confirmed Active IBS (irritable bowel syndrome) Confirmed Active RADHA (obstructive sleep apnea) Confirmed Active OA (osteoarthritis) of knee Confirmed Active Prediabetes Confirmed Active Diagnosis Diagnosis Type Effective Dates Health Status Clinical Service Informant Respiratory infection Discharge Diagnosis 07/11/23 Non-Specified Establishing care with new doctor, encounter for Discharge Diagnosis 07/11/23 Eczema Discharge Diagnosis 07/11/23 Vital Signs Most recent to oldest [Reference Range]: 1 Height 166 cm (07/11/23 1:45 PM) Patient Weight 111 kg (07/11/23 1:45 PM) Body Mass Index 40.28 kg/m2 (07/11/23 1:45 PM) Temperature [36.5-37.9 DegC] 36.1 DegC *LOW* (07/11/23 1:45 PM) Blood Pressure 130/90mmHg (07/11/23 1:45 PM) Cuff Pulse Pressure 40 mmHg (07/11/23 1:45 PM) Social History Social History Type Response Smoking Status Never smoker;Never entered on: 07/11/23 Sex Female FCM Outpt Note * Alla Lopez DO, Mariana Annette: PERFORM Event Display: FCM Outpt Note Authored Date: Chief Complaint Pt is here as a new pt wants to establish care. pt also started with cold/ flu symptoms . cough, body aches History of Present Illness Patient presents to establish care. PMH: concussion in Apr 2023, prediabetes, anemia, asthma, hypoglycemia, knee OA, colitis, IBS, diverticulosis, eczema/psoriasis, pyelonephritis, sleep apnea (not on CPAP). PSH: tubal ligation, cholecystectomy. FH: stroke, breast cancer, glaucoma, alcoholism SH: never smoker, does not drink, no recreational drugs. Not working due to concussion. Acute concerns: - currently sick, sx started 8 days ago, cough, body aches. Feels like she's getting worse. Chronic conditions (currently on no meds): - knee OA: gets knee injections with improvement - IBS: was on dicyclomine in the past. - urinary incontinence: was on oxybutynin Health Maintenance: - Colon CA screening: had colonoscopy about 10 yrs ago. - Cervical CA screening: last pap before 2019 - Breast CA screening: has been years Physical Exam Vitals & Measurements T:36.1C BP:130/90 SpO2:99% HT:166cm WT:111kg WT:111.000kg(Dosing) BMI:40.28 PHQ2 Data(Data Documented on:07/11/2023 13:40) Emotional health assessment NEGATIVE General: _Alert and oriented, No acute distress HEENT: _ Normocephalic, Right TM erythematous and bulging, Nl gross hearing, moist oral mucosa, pharyngeal erythema. Cardiovascular: _Normal rate, Regular rhythm, No murmur, No gallop. Respiratory: _fine crackles bilat lower lungs, Respirations are non-labored, Breath sounds are equal Integumentary: _Warm, Dry. Psych: Mood-affect congruence. Reports no SI/HI. Speech is of normal pace and content Assessment/Plan 1.Establishing care with new doctor, encounter for will obtain records ordered screening labs will bring patient back to update health maintenance 2.Respiratory infection Acute, worsening will treat with doxycycline 100mg bid 10 days and medrol dose pack 3.Eczema referral to dermatology per patient request Attestation Time spent: Pre-visit planning: _5 Gqft-it-logi visit: _45 Post-visit (orders/documentation/coordination of care):10 Total visit time: _60 Problem List/Past Medical History Ongoing Anemia Asthma Diverticulosis Eczema IBS (irritable bowel syndrome) OA (osteoarthritis) of knee RADHA (obstructive sleep apnea) Prediabetes Medications cyclobenzaprine(cyclobenzaprine 10 mg oral tablet), 10 mg= 1 tab, PO, bid, PRN doxycycline(doxycycline hyclate 100 mg oral capsule), 100 mg= 1 cap, PO, bid methylPREDNISolone(Medrol Dosepak 4 mg oral tablet), See Instructions Allergies PCN (penicillin)facial swelling citric acidthroat swelling sulfa drugsrash Social History Smoking Status Never smoked cigarettes Recommendations Health Maintenance Pending(in the next year) OverDue Adult Influenza Vaccine due11/01/22and every 1year Due Adult COVID-19 Vaccination due07/11/23Unknown Frequency Adult Social Determinants of Health Screening due07/11/23Unknown Frequency Adult Tdap/Td Vaccine due07/11/23Unknown Frequency Cervical Cancer Screening due07/11/23Unknown Frequency Colorectal Cancer Screening due07/11/23Unknown Frequency Hepatitis C Screening due07/11/23One-time only Lipid Screening due07/11/23Unknown Frequency Due In Future Body Mass Index not due until05/20/24and every Satisfied(in the past 1 year) Satisfied Body Mass Index on07/11/23.Satisfied by [employer] Carli Electronic Signature on File Electronically Reviewed/Signed by: Edwige Lopez DO Author Signature Dt/Tm:07/11/2023 04:35 PM Department of Family Medicine [facility] Patient Care team information Care Team Personnel Name: Alla Lopez DO, Mariana Annette Position: Physician - Family Med Member Role: Primary Care Provider Address: Address: [address] [place] [id number] [place] Care Team Related Persons Name: ESTRELLITA DAVIS Address: home [address], [place] [phone] Name: RONAL DAVIS Address: home [address], [place] [phone]
--- NOTE | 2023-10-18 22:10 | Billing Data ---
Date of Service October 18, 2023 Coding Level of Care Code 44050 INT INP/OBS CARE
== END 2023-10-17 10:58 | disposition home or self-care (01) | DRG 392 ==
LOC: ED 14:28 → INTOOBSV 23:08 → EDINP 23:08 → SUATTDRO 23:08 → EDINP 10-17 01:03
DX: Z68.41 Body mass index [BMI] 40.0-44.9, adult; Z88.0 Allergy status to penicillin; R31.9 Hematuria, unspecified; D25.9 Leiomyoma of uterus, unspecified; Z91.013 Allergy to seafood; Z90.49 Acquired absence of other specified parts of digestive tract; E66.9 Obesity, unspecified; N39.0 Urinary tract infection, site not specified; K59.00 Constipation, unspecified; G47.53 Recurrent isolated sleep paralysis; Z88.2 Allergy status to sulfonamides